=== PATIENT | female | born 1990 | race Caucasian/White ===

== ENCOUNTER 2020-10-23 13:33 | Outpatient (CLI) | payer BC, MEDICAID, SELFPAY ==
--- NOTE | 2020-10-23 13:30 | USCV_ITS ---
Debbie Jyotsna Age: 30 Gender: F : 1990 Exam Date: 10/23/2020 13:45 Ordering Phys: Jolene Ngo NP Technologist: Beatriz Catherine Exam Location: [facility] [place] Indication: PAIN LT LOWER LATERAL LEG. HISTORY: Pt directs to pain in lateral Lt lower leg. PROCEDURES: Venous duplex imaging was performed in only the left lower extremity. The following venous structures were evaluated: common femoral vein, profunda vein, proximal portion of the greater saphenous vein, superficial femoral vein, and the popliteal vein. In addition, the posterior tibial and peroneal trunk were evaluated. Serial compression, augmentation maneuvers, and spectral Doppler flow evaluation were performed. Area of pain examined per directions by pt FINDINGS: Normal 2-D Doppler and augmentation and compressibility throughout the lower extremity venous structures. Additional imaging through the proximal calf veins also reveals no thrombus. Limited evaluation of the greater saphenous vein is patent with no thrombus.. CONCLUSIONS No DVT left lower extremity. Dr. Berna Barlow DO (Electronically Signed) Final Date: 24 October 2020 09:59 S
== END 2020-10-23 13:34 | disposition home or self-care (01) ==
PROVIDERS: PCP Family Medicine; Visit Provider Nurse Practitioner Family
DX: Z97.5 Presence of (intrauterine) contraceptive device (principal); F17.200 Nicotine dependence, unspecified, uncomplicated; M79.662 Pain in left lower leg
CPT/HCPCS: 93971

== ENCOUNTER → 2021-01-25 10:29 | Outpatient (BNVA) | payer BC, MEDICAID, SELFPAY | PROVIDERS: PCP Family Medicine; Visit Provider Nurse Practitioner Family | DX: M25.562 Pain in left knee (principal) | CPT/HCPCS: 73562 ==

== ENCOUNTER 2021-07-24 10:34 | Outpatient (CLI) | payer BC, MEDICAID, SELFPAY ==
--- NOTE | 2021-07-24 11:00 | US_ITS ---
WS: [id number] Complete ABDOMINAL ULTRASOUND HISTORY: R10.9 - Unspecified abdominal pain COMPARISON: None available. Liver: 17.8 cm in length. Moderately enlarged liver. Low attenuation and heterogeneity from hepatic s teatosis. The entire liver is not well visualized due to attenuation. No bile duct dilatation. Portal Vein: Normal hepatopetal flow with monophasic waveform. Gallbladder: Normally distended with no gallstones, wall thickening or pericholecystic fluid. Gallbladder wall thickness: 0.2 cm. Pancreas: Normal size and echogenicity. CBD: 0.5 cm. Right kidney: 10.7 cm x 4.8 cm x 4.1 cm. No mass, cortical thickening or hydronephrosis. Left kidney: 12.1 cm x 5.8 cm x 5.9 cm. No mass, cortical thickening or hydronephrosis. Spleen: Normal size and echogenicity. Abdominal aorta and IVC are within normal limits. No ascites. US/US abdomen complete* [id number] IMPRESSION: 1. Normal gallbladder. 2. Moderate hepatic steatosis and hepatomegaly. 3. No bile duct dilatation.
== END 2021-07-24 10:35 | disposition home or self-care (01) ==
LOC: RAD 10:36
PROVIDERS: PCP Family Medicine; Visit Provider Family Medicine
DX: R10.9 Unspecified abdominal pain (principal); K76.0 Fatty (change of) liver, not elsewhere classified; R16.0 Hepatomegaly, not elsewhere classified
CPT/HCPCS: 76700

== ENCOUNTER → 2021-07-25 09:01 | Outpatient (BNVA) | payer BC, MEDICAID, SELFPAY | PROVIDERS: PCP Family Medicine; Visit Provider Family Medicine | DX: R10.9 Unspecified abdominal pain (principal); Z68.37 Body mass index [BMI] 37.0-37.9, adult | CPT/HCPCS: 80053; 80061; 84439; 84443; 85025 ==

== ENCOUNTER → 2021-10-16 16:04 | Outpatient (BNVA) | payer BC, MEDICAID, SELFPAY | PROVIDERS: PCP Internal Medicine; Visit Provider Internal Medicine | DX: K75.81 Nonalcoholic steatohepatitis (NASH) (principal); K76.0 Fatty (change of) liver, not elsewhere classified; R10.9 Unspecified abdominal pain; Z68.37 Body mass index [BMI] 37.0-37.9, adult | CPT/HCPCS: 80053; 80061 ==

== ENCOUNTER → 2021-10-23 15:18 | Outpatient (BNVA) | payer BC, MEDICAID, SELFPAY | PROVIDERS: PCP Internal Medicine; Visit Provider Obstetrics & Gynecology | DX: Z01.419 Encounter for gynecological examination (general) (routine) without abnormal findings (principal); N92.1 Excessive and frequent menstruation with irregular cycle; Z97.5 Presence of (intrauterine) contraceptive device | CPT/HCPCS: 87624 ==

== ENCOUNTER → 2022-12-16 10:12 | Outpatient (BNVA) | payer BC, MEDICAID, SELFPAY | PROVIDERS: PCP Nurse Practitioner Family; Visit Provider Nurse Practitioner Family | DX: R42 Dizziness and giddiness (principal); M25.50 Pain in unspecified joint | CPT/HCPCS: 80053; 81000; 81025; 84443; 85025; 86000; 86618; 86666; 86757 ==

== ENCOUNTER → 2023-01-28 09:37 | Outpatient (BNVA) | payer BC, MEDICAID, SELFPAY | PROVIDERS: PCP Nurse Practitioner Family; Visit Provider Nurse Practitioner Women's Health | DX: Z13.220 Encounter for screening for lipoid disorders; N64.52 Nipple discharge | CPT/HCPCS: 80061; 84146; 84702 ==

== ENCOUNTER → 2023-06-12 14:10 | Outpatient (BNVA) | payer BC, MEDICAID, SELFPAY | PROVIDERS: PCP Nurse Practitioner Family; Visit Provider Nurse Practitioner Women's Health | DX: N91.2 Amenorrhea, unspecified (principal); N64.52 Nipple discharge | CPT/HCPCS: 81025; 84146; 84443 ==

== ENCOUNTER 2023-06-23 13:02 | Outpatient (CLI) | payer BC, MEDICAID, SELFPAY ==
--- NOTE | 2023-06-23 13:08 | MM_ITS ---
WS: [id number] DIAGNOSTIC BILATERAL DIGITAL BREAST TOMOSYNTHESIS MAMMOGRAPHY WITH CAD LEFT breast ultrasound, limited. HISTORY: Palpable nodule upper outer quadrant LEFT breast., Clear LEFT nipple discharge. COMPARISON: None available. TECHNIQUE: Bilateral craniocaudad, mediolateral oblique, and mediolateral views are submitted with to mosynthesis and SM. Spot compression LEFT CC and MLO. Computer aided detection utilized. Breast composition: There are scattered areas of fibroglandular density. No mass identified in the up per outer quadrant of the LEFT breast at the site of the palpable marker. No suspicious masses or edith cifications. No distortion. LEFT breast ultrasound, limited. Ultrasound is directed to the upper outer quadrant of the LEFT breast at 2:00, 6 cm from the nipple. This is in the region of the palpable abnormality. There is no underlying mass identified. No distort ion or soft tissue abnormality. No dilated ducts are noted around the nipple. No duct ectasia. IMPRESSION: MM/[place] [id number] BI-RADS: 2-Benign FOLLOW UP: 1 Year Follow-up
--- NOTE | 2023-06-23 14:00 | US_ITS ---
WS: [id number] DIAGNOSTIC BILATERAL DIGITAL BREAST TOMOSYNTHESIS MAMMOGRAPHY WITH CAD LEFT breast ultrasound, limited. HISTORY: Palpable nodule upper outer quadrant LEFT breast., Clear LEFT nipple discharge. COMPARISON: None available. TECHNIQUE: Bilateral craniocaudad, mediolateral oblique, and mediolateral views are submitted with to mosynthesis and SM. Spot compression LEFT CC and MLO. Computer aided detection utilized. Breast composition: There are scattered areas of fibroglandular density. No mass identified in the up per outer quadrant of the LEFT breast at the site of the palpable marker. No suspicious masses or edith cifications. No distortion. LEFT breast ultrasound, limited. Ultrasound is directed to the upper outer quadrant of the LEFT breast at 2:00, 6 cm from the nipple. This is in the region of the palpable abnormality. There is no underlying mass identified. No distort ion or soft tissue abnormality. No dilated ducts are noted around the nipple. No duct ectasia. IMPRESSION: US/US breast LT limited* [id number] BI-RADS: 2-Benign FOLLOW UP: 1 Year Follow-up
== END 2023-06-23 13:03 | disposition home or self-care (01) ==
LOC: RAD 13:03
PROVIDERS: PCP Nurse Practitioner Family; Visit Provider Nurse Practitioner Women's Health
DX: N64.52 Nipple discharge (principal); N63.21 Unspecified lump in the left breast, upper outer quadrant
CPT/HCPCS: 76642; 77062; G0279

== ENCOUNTER 2025-03-25 08:37 | Emergency (ER) | payer BC, MEDICAID, SELFPAY ==
[2025-03-25 08:41] VITALS: BP 155/87; PULSE 75; RESP 18; TEMP 36.4; O2SAT 96; BMI 52.0
--- NOTE | 2025-03-25 08:48 | CT_ITS ---
WS: [id number] CT ABDOMEN PELVIS TECHNIQUE: Contrast-enhanced CT of the abdomen and pelvis with coronal and sagittal reformatted images. CLINICAL INFORMATION: L sided abd pain acute onset, diarrhea COMPARISON: None. DLP: 816.[address] scans at [facility] use at least one of these dose optimization techniques: automated exposure control; mA and/or kV adjustment per patient size (includes targeted exams where dose is matched to clinical indication); or iterative reconstruction. FINDINGS: Normal liver. Normal spleen. Normal gallbladder. Normal pancreatic parenchymal enhancement. Adrenal glands are normal. No hydronephrosis. Lung bases are well aerated. Small esophageal hernia. Normal caliber abdominal aorta. Small fat- containing umbilical hernia Moderate amount of free fluid in the cul-de-sac. Normal sigmoid colon. No evidence of small or large bowel obstruction. 11 mm calcification in the base of the cecum near the the appendix origin. Additional appendicoliths in the appendix although no evidence of acute appendicitis. Thickened enhancing distal fluid-filled small bowel loops in the midabdomen RIGHT lower quadrant and pelvis suspicious for small bowel enteritis. Colon has a more normal appearance. CT/CT abdomen pelvis w con* [id number] IMPRESSION: 1. Appendicoliths described above. No evidence of acute appendicitis. 2. Moderate amount of free fluid in the cul-de-sac. Small amount of fluid abou t the RIGHT ovary. Recommend correlation for SENIOR COMMUNICATIONS SPECIALIST etiologies. No visualized larg e ovarian or hemorrhagic cyst. 3. Thickened and enhancing distal small bowel loops in the RIGHT lower quadran t and pelvis suspicious for infectious or inflammatory small bowel enteritis. 4. Sigmoid colon is normal in appearance. 5. No other acute findings
[2025-03-25 08:55] LABS: Hematocrit 44.3 % (36-47); Hemoglobin 15.40 g/dL (11.27-16.99); Mean Corpuscular HGB Conc 34.8 g/dL (30-55); Mean Corpuscular Hemoglobin 30.4 pg (27-33); Mean Corpuscular Volume 87.5 fl (85-98); Nucleated Red Blood Cells % 0 %; Platelet Count 523 10^3/cmm (157-399); Red Blood Count 5.06 10^6/uL (3.85-5.65); White Blood Count 19.02 10^3/uL (3.29-11.43)
[2025-03-25 08:56] VITALS: RESP 18
[2025-03-25] MEDS: morphine 4 mg/mL SDV 1 mL IVP (08:56)
[2025-03-25] MEDS: ondansetron 2 mg/ML SDV 2 mL 4 MG IVP (09:05)
[2025-03-25 09:07] LABS: Glucose Urine UA Negative (Normal); Nitrate Urine Negative (Negative); Specific Gravity, Urine 1.024 (1.005-1.030)
[2025-03-25 09:08] LABS: HCG Qualitative Urine. Negative (Negative)
[2025-03-25] MEDS: iohexol 350 mg/mL 500 mL Btl (per mL) IV (09:18)
[2025-03-25 09:25] LABS: Alanine Aminotransferase 13 U/L (0-33); Albumin Level 4.5 g/dL (3.5-5.2); Alkaline Phosphatase 73 U/L (35-105); Anion Gap 20.0 (5-19); Aspartate Amino Transferase 12 U/L (0-32); Blood Urea Nitrogen 16 mg/dL (6-20); Calcium 10.0 mg/dL (8.5-10.5); Carbon Dioxide 21 mmol/L (22-29); Chloride 100 mmol/L (98-107); Creatinine Clr Calc Pharmacy 121.7506; Globulin 3.7 g/dL (1.3-4.6); Glucose 123 mg/dL (65-115); Lipase 43 U/L (13-60); Osmolality Calculated 287 mOsm/kg (285-295); Potassium 4.0 mmol/L (3.5-5.1); Sodium 137 mmol/L (136-145); Total Protein 8.2 g/dL (6.6-8.7)
--- NOTE | 2025-03-25 09:35 | W.ED.ABDPA2 ---
HPI - Abdominal Pain General: Chief Complaint: Abdominal Pain Stated Complaint: L side Pain going to front ABD N/V Time Seen by Provider: 03/25/25 08:45 History of Present Illness: 34-year-old female presenting to the emergency department with acute onset of left-sided mid and upper abdominal pain rating into the middle of the abdomen, 10 out of 10 in severity, onset overnight, waxing and waning, no history of kidney stones, no vomiting, positive mild nonbloody diarrhea since this morning, no vaginal bleeding, no vaginal discharge, no fever. She does incidentally report recently finishing treatment for double sinus and ear infection for which she received a shot of steroids and antibiotics about 7 to 10 days ago. Related Data Home Medications ?Medication ?Instructions ?Recorded ?Confirmed fluticasone propionate 50 2 spray intranasal DAILY PRN 03/25/25 03/25/25 mcg/actuation nasal allergies spray,suspension levofloxacin 500 mg tablet 500 mg PO DAILY 03/25/25 03/25/25 levonorgestrel-ethinyl estradiol 1 tab PO DAILY 03/25/25 03/25/25 0.1 mg-20 mcg tablet (Aviane) Allergies Allergy/AdvReac Type Severity Reaction Status Date / Time bee venom protein (honey bee) Allergy Severe anaphylaxis Verified 03/25/25 08:44 [facility] ED PFSH: Medical History No pertinent past medical history neghx: htn,dm,thyroid,dvt/pe PCP: Jolene Surgical History Previous section 1)---2011 2)---2017 Family History Grandmother Diabetes paternal Breast cancer Maternal- age onset unknown Cancer Maternal-- dx age 60's female cancer Father Heart disease Mother Breast cancer 30 Family/Other Breast cancer 2 maternal aunts, 1 paternal aunt age onset unknown Denies family history of Colon cancer Ovarian cancer Hyperlipidemia Hypertension Uterine cancer Thyroid disease Stroke Social History Smoking and tobacco/nicotine status: never used tobacco/nicotine Physical Exam Narrative: EXAM NARRATIVE: Gen: A&Ox4, no acute distress, nontoxic appearing HEENT: Normocephalic, atraumatic, no scleral icterus, external ears normal, moist mucous membranes Neck: Supple, full range of motion, no observable masses Lungs: No Respiratory distress, Lungs clear to auscultation bilaterally no rales, rhonchi, wheezing CV: Regular rate and rhythm, no murmur, no pitting edema to lower extremities bilaterally Abdomen: Soft, nondistended, tender to palpation to the left side of the abdomen diffusely as well as to the mid abdomen, no right upper quadrant or right lower quadrant tenderness, no CVA tenderness bilaterally, no distention rebound or guarding MSK: No joint swelling, FROM all 4 extremities Skin: No rashes, petechiae, lesions. Normal color per patient. Neuro: Alert and oriented, no slurred speech, sensation and strength grossly intact all 4 extremities Psych: Appropriate for situation. Course Reevaluation(s): Reevaluation #1: Patient reassessed at this time, pain is markedly improved, workup significant for elevation in white blood cell count, otherwise no evidence of infection on urinalysis, CT scan showing possible enteritis as well as some free fluid around the right ovary without visible large ovarian mass or cyst, will obtain pelvic ultrasound to assess for smaller ovarian cyst with rupture and to rule out torsion, patient was noted to have appendicolith but there is no surrounding evidence suggestive of acute appendicitis at this time acute appendicitis appears less likely Time: 09:50 Reevaluation #2: Ultrasound with no significant abnormalities other than simple free fluid, pain improved, stable for discharge with monitoring of symptoms at home and return precautions for fever, worsening pain, vomiting or diarrhea leading to dehydration. Time: 11:42 Vital Signs: Vital signs: Vital Signs Temperature 97.6 F 03/25/25 08:41 Pulse Rate 62 03/25/25 11:29 Respiratory Rate 14 03/25/25 09:46 Blood Pressure 133/77 03/25/25 11:29 Pulse Oximetry 95 03/25/25 11:29 Oxygen Delivery Me thod Room Air 03/25/25 11:29 MDM - Abdominal Pain Medical Decision Making 34-year-old female presenting to the emergency department with acute onset of left-sided abdominal pain with associated mild diarrhea overnight, patient appears mildly uncomfortable secondary to pain, vital signs stable, no other associated signs or symptoms of SURFACER OPERATOR pathology, plan for CT of the abdomen to assess for renal stone, diverticulitis/enteritis/colitis, differential includes appendicitis and cholecystitis although less likely given location of pain, UTI/pyelonephritis also consideration although less likely with no intestine and urinary symptoms, ovarian pathology such as ruptured ovarian cyst less likely although given diffuse nature of the pain hemoperitoneum is a consideration, low concern for ovarian torsion or PID clinically, reassess for disposition Lab Data Laboratory workup significant for leukocytosis to 19, no VILMA, normal electrolytes, no anemia, normal LFTs, no evidence of UTI 03/25/25 08:51 03/25/25 08:51 Labs/Radiology: Radiology Impressions Abdomen/Pelvis CT 03/25/25 08:48 IMPRESSION: 1. Appendicoliths described above. No evidence of acute appendicitis. 2. Moderate amount of free fluid in the cul-de-sac. Small amount of fluid about the RIGHT ovary. Recommend correlation for SURFACER OPERATOR etiologies. No visualized large ovarian or hemorrhagic cyst. 3. Thickened and enhancing distal small bowel loops in the RIGHT lower quadrant and pelvis suspicious for infectious or inflammatory small bowel enteritis. 4. Sigmoid colon is normal in appearance. 5. No other acute findings Pelvis Ultrasound 03/25/25 09:49 IMPRESSION: 1. No ovarian torsion identified. 2. Ovaries are normal size. 3. Small amount of simple free fluid in the pelvis. Laboratory Results WBC 19.02 10^3/uL (3.29-11.43) H 03/25/25 08:51 RBC 5.06 10^6/uL (3.85-5.65) 03/25/25 08:51 Hgb 15.40 g/dL (11.27-16.99) 03/25/25 08:51 Hct 44.3 % (36-47) 03/25/25 08:51 MCV 87.5 fl (85-98) 03/25/25 08:51 MCH 30.4 pg (27-33) 03/25/25 08:51 MCHC 34.8 g/dL (30-55) 03/25/25 08:51 RDW 11.9 % (12.1-15.1) L 03/25/25 08:51 Plt Count 523 10^3/cmm (157-399) H 03/25/25 08:51 MPV 8.4 fL (7.4-10.4) 03/25/25 08:51 Neut % (Auto) 82.1 % 03/25/25 08:51 Lymph % (Auto) 13.0 % 03/25/25 08:51 [place] % (Auto) 3.7 % 03/25/25 08:51 Eos % (Auto) 0.4 % 03/25/25 08:51 Baso % (Auto) 0.3 % 03/25/25 08:51 Neut # (Auto) 15.61 10^3/uL (1.8-7.7) H 03/25/25 08:51 Lymph # (Auto) 2.5 10^3/uL (0.8-4.8) 03/25/25 08:51 [place] # (Auto) 0.7 10^3/uL (0.2-0.9) 03/25/25 08:51 Eos # (Auto) 0.1 10^3/uL (0.0-0.8) 03/25/25 08:51 Baso # (Auto) 0.1 10^3/uL (0.0-0.1) 03/25/25 08:51 Nucleated RBC % (auto) 0 % 03/25/25 08:51 Nucleated RBCs # 0.0 /100WBC 03/25/25 08:51 Sodium 137 mmol/L (136-145) 03/25/25 08:51 Potassium 4.0 mmol/L (3.5-5.1) 03/25/25 08:51 Chloride 100 mmol/L (98-107) 03/25/25 08:51 Carbon Dioxide 21 mmol/L (22-29) L 03/25/25 08:51 Anion Gap 20.0 (5-19) H 03/25/25 08:51 BUN 16 mg/dL (6-20) 03/25/25 08:51 Creatinine 0.8 mg/dL (0.5-0.9) 03/25/25 08:51 GFR Calculation 81.6 mL/min (90-130) L 03/25/25 08:51 Glucose 123 mg/dL (65-115) H 03/25/25 08:51 Calculated Osmolality 287 mOsm/kg (285-295) 03/25/25 08:51 Calcium 10.0 mg/dL (8.5-10.5) 03/25/25 08:51 Total Bilirubin 0.3 mg/dL (0.15-1.2) 03/25/25 08:51 AST 12 U/L (0-32) 03/25/25 08:51 ALT 13 U/L (0-33) 03/25/25 08:51 Alkaline Phosphatase 73 U/L (35-105) 03/25/25 08:51 Total Protein 8.2 g/dL (6.6-8.7) 03/25/25 08:51 Albumin 4.5 g/dL (3.5-5.2) 03/25/25 08:51 Globulin 3.7 g/dL (1.3-4.6) 03/25/25 08:51 Lipase 43 U/L (13-60) 03/25/25 08:51 HCG, Qual Negative (Negative) 03/25/25 09: Urine Color Yellow (Yellow) 03/25/25 09: Urine Appearance Clear (CLEAR) 03/25/25 09: Urine pH 8.5 (5-7) A 03/25/25 09: Ur Specific [place] 1.024 (1.005-1.030) 03/25/25 09: Urine Protein 1+ (Negative) A 03/25/25 09:01 Urine Glucose (UA) Negative (Normal) 03/25/25 09: Urine Ketones Trace (Negative) 03/25/25 09: Urine Blood Negative (Negative) 03/25/25 09: Urine Nitrate Negative (Negative) 03/25/25 09:01 Urine Bilirubin Negative (Negative) 03/25/25 09: Urine Urobilinogen 1.0 mg/dL (Negative) 03/25/25 09:01 Ur Leukocyte Esterase Negative (Negative) 03/25/25 09: Urine RBC 0-2 /hpf (0-2) 03/25/25 09:01 Urine WBC 0-5 /hpf (0-5) 03/25/25 09:01 Ur Squamous Epith Cells 6-10 /hpf (0-5) 03/25/25 09: Amorphous Sediment Not Reportable 03/25/25 09: Urine Bacteria None seen /hpf (NONE) 03/25/25 09: Hyaline Casts 0.40 /lpf 03/25/25 09:01 All radiology interpretation(s) finalized by discharge ED provider radiology interpretation(s): CT abdomen pelvis showing appendicoliths without evidence of acute appendicitis, free fluid in the pelvis, enteritis. Pelvic ultrasound with simple free fluid in the pelvis without ovarian cysts or torsion Discharge Plan Discharge Patient Disposition: Home Clinical Impression: Enteritis Abdominal pain Qualifiers: Abdominal location: unspecified location Qualified Code(s): R10.9 - Unspecified abdominal pain Leukocytosis Qualifiers: Leukocytosis type: unspecified Qualified Code(s): D72.829 - Elevated white blood cell count, unspecified Condition: Stable Prescriptions: No Action levofloxacin 500 mg tablet 500 mg PO DAILY fluticasone propionate 50 mcg/actuation spray,suspension 2 spray INTRANASAL DAILY PRN (Reason: allergies) levonorgestrel-ethinyl estrad [Aviane] 0.1-20 mg-mcg tablet 1 tab PO DAILY Discharge Orders: Discharge ED (Routine); Ordered 03/25/25 Ordered By: Christoph Garland Referrals: Jolene Ngo CLINICAL DATA ABSTRACTOR [Primary Care Provider, Family Practice] Patient Instructions: Abdominal Pain (ED), Patient [facility] Instructions, Leukocytosis (ED) Print Language: Tongan Coding Level of Care Code ED Machinist Helper for Juan Ramon Traylor
[2025-03-25 09:46] VITALS: BP 123/75; PULSE 79; RESP 14; O2SAT 94
--- NOTE | 2025-03-25 09:49 | US_ITS ---
WS: [id number] US pelvic complete* [id number] HISTORY: abd pain, fluid around R ovary, r/o ruptured cyst/torsion COMPARISON: CT 03/25/2025 Uterus: 8.4 cm x 4.4 cm x 4.8 cm. Normal size anteverted uterus. No fibroid or mass. scar along the lower uterine segment. Endometrium: 0.6 cm. Normal. Right ovary: 3.3 cm x 2.3 cm x 2.7 cm. Normal size and vascularity, no cystic or solid masses. Small follicles. Left ovary: 2.3 cm x 2.2 cm x 2.3 cm. Normal size and vascularity, no cystic or solid masses. Small amount of simple free fluid in the pelvis. US/US pelvic complete* [id number] IMPRESSION: 1. No ovarian torsion identified. 2. Ovaries are normal size. 3. Small amount of simple free fluid in the pelvis.
[2025-03-25 11:29] VITALS: BP 133/77; PULSE 62; O2SAT 95
[2025-03-25 11:54] VITALS: BP 121/85; PULSE 80; O2SAT 96
== END 2025-03-25 11:58 | disposition home or self-care (01) ==
PROVIDERS: Emergency Provider Student in an Organized Health Care Education/Training Program; PCP Nurse Practitioner Family
DX: K52.9 Noninfective gastroenteritis and colitis, unspecified (principal); R10.9 Unspecified abdominal pain; D72.829 Elevated white blood cell count, unspecified
CPT/HCPCS: 36415; 74177; 76856; 80053; 81001; 81025; 83690; 85025; 96374; 96375; 99285; J1885; J2270; J2405

== ENCOUNTER 2025-04-05 11:25 | Outpatient (CLI) | payer BC, MEDICAID, SELFPAY ==
--- NOTE | 2025-04-05 11:30 | US_ITS ---
WS: [id number] ABDOMINAL ULTRASOUND LIMITED REASON FOR VISIT: R10.9 - Unspecified abdominal pain TECHNIQUE: Grayscale and Doppler ultrasound examination of the abdomen. FINDINGS: Pancreas: No mass, ductal dilatation, or calcification. Abdominal aorta and IVC: Normal Liver: Liver measures 15.5 cm in length. No focal lesion. Equivocal increased echogenicity. Normal portal venous flow. Gallbladder: Gallbladder wall thickness measures 0.1 mm. No calculi. Normal common bile duct. Right kidney: Right kidney measures 10.2 cm x 6.5 cm x 3.9 cm. Right kidney cortex measures 1.0 cm. No mass, calculus, or hydronephrosis. No ascites. US/US gall bladder [id number] IMPRESSION: Normal gallbladder. Equivocal findings for fatty infiltration of the liver.
== END 2025-04-05 11:26 | disposition home or self-care (01) ==
LOC: RAD 11:25
PROVIDERS: PCP Nurse Practitioner Family; Visit Provider Nurse Practitioner Family
DX: R10.9 Unspecified abdominal pain (principal); R93.2 Abnormal findings on diagnostic imaging of liver and biliary tract
CPT/HCPCS: 76705

== ENCOUNTER → 2025-04-25 11:26 | Outpatient (BNVA) | payer BC, MEDICAID, SELFPAY | PROVIDERS: PCP Nurse Practitioner Family; Visit Provider Nurse Practitioner Family | DX: R19.7 Diarrhea, unspecified (principal) | CPT/HCPCS: 86003; 86008 ==